=== PATIENT | female | born 1975 | race Caucasian/White ===

== ENCOUNTER → 2017-01-26 | Outpatient (CLI) | payer MEDICAID ==
--- NOTE | 2017-01-27 10:18 | MM ---
Reason for exam: screening (asymptomatic). Last mammogram was performed 1 year and 8 months ago. History: Patient has history of other cancer at age 37. Physical Findings: A clinical breast exam by your physician is recommended on an annual basis and results should be correlated with mammographic findings. MG 3D Screening Mammo W/Cad Bilateral CC and MLO view(s) were taken. Prior study comparison: May 23, 2015, bilateral MG screening mammo w CAD. The breast tissue is heterogeneously dense. This may lower the sensitivity of mammography. No significant changes when compared with prior studies. ASSESSMENT: Negative, BI-RAD 1 RECOMMENDATION: Routine screening mammogram of both breasts in 1 year.
== END | disposition home or self-care (01) ==
LOC: RADMAMWWP 07:42
PROVIDERS: ATTEND Obstetrics & Gynecology
DX: Z12.31 Encounter for screening mammogram for malignant neoplasm of breast (principal)
CPT/HCPCS: 77063; G0202

== ENCOUNTER → 2017-06-22 | Outpatient (CLI) | payer MEDICAID ==
--- NOTE | 2017-06-22 10:25 | US ---
EXAMINATION TYPE: US thyroid st tissue head/neck DATE OF EXAM: 06/22/2017 COMPARISON: US 04/09/2016 and 10/15/2015. CLINICAL HISTORY: C73 Post Thyroid Cancer Screening. GLAND SIZE: Right Lobe: surgically removed Left Lobe: surgically removed NODULES RIGHT: possible lymph node at mid thyroid bed = 0.7 x 0.5 x 0.6cm. This is stable previously measuri ng 0.7 x 0.5 cm and on the exam of 10/15/2015 measuring 0.8 x 0.5 mm. LEFT: no thyroid tissue is identified ISTHMUS: no thyroid tissue is identified IMPRESSION: 1. Prior thyroidectomy with no residual thyroid tissue visualized sonographically. 2. Stable single lymph node at the mid thyroidectomy bed on the right in comparison to the prior exam .
== END | disposition home or self-care (01) ==
LOC: RADUSWWP 08:56
PROVIDERS: ATTEND Internal Medicine Endocrinology, Diabetes & Metabolism
DX: C73 Malignant neoplasm of thyroid gland (principal); E89.0 Postprocedural hypothyroidism
CPT/HCPCS: 76536

== ENCOUNTER → 2017-06-24 | Outpatient (CLI) | payer MEDICAID | END | disposition home or self-care (01) | LOC: LABMAIN 06:50 | PROVIDERS: ATTEND Internal Medicine Endocrinology, Diabetes & Metabolism | DX: C73 Malignant neoplasm of thyroid gland (principal); E89.0 Postprocedural hypothyroidism | CPT/HCPCS: 36415; 84432; 84439; 84443; 86800 ==

== ENCOUNTER → 2018-04-27 | Outpatient (CLI) | payer MEDICAID | END | disposition home or self-care (01) | LOC: LABMAIN 06:56 | PROVIDERS: ATTEND Family Medicine | DX: E03.9 Hypothyroidism, unspecified (principal); R53.83 Other fatigue; Z53.9 Procedure and treatment not carried out, unspecified reason ==

== ENCOUNTER → 2019-02-21 | Outpatient (CLI) | payer MEDICAID ==
[2019-02-21 18:28] LABS: Thyroglobulin <0.20 ng/mL (1.60-59.90)
== END | disposition home or self-care (01) ==
LOC: LABMAIN 06:56
PROVIDERS: ATTEND Family Medicine
DX: C73 Malignant neoplasm of thyroid gland (principal)
CPT/HCPCS: 36415; 84432; 84439; 84443; 86800

== ENCOUNTER → 2019-03-18 | Outpatient (CLI) | payer MEDICAID ==
--- NOTE | 2019-03-21 10:56 | MM ---
Reason for exam: screening (asymptomatic). Last mammogram was performed 2 years and 2 months ago. History: Patient has history of other cancer at age 37. Physical Findings: A clinical breast exam by your physician is recommended on an annual basis and results should be correlated with mammographic findings. MG Screening Mammo w CAD Bilateral CC and MLO view(s) were taken. Prior study comparison: January 26, 2017, bilateral MG 3d screening mammo w/cad. May 23, 2015, bilateral MG screening mammo w CAD. The breast tissue is heterogeneously dense. This may lower the sensitivity of mammography. Finding: There is a 5 mm high density, round mass located 6-7 cm from the nipple in the 12 o'clock middle position of the left breast consistent with possible cyst. Asymmetric breast tissue in right upper outer quadrant 6-7cm from the nipple on MLO view. ASSESSMENT: Incomplete: need additional imaging evaluation, BI-RAD 0 RECOMMENDATION: Special view mammogram of both breasts. If lesion persists on supplemental views, image directed ultrasound is recommended. [facility] will attempt to contact patient to return for supplemental views and ultrasound if indicated.
== END ==
LOC: RADMAMWWP 11:14
PROVIDERS: ATTEND Obstetrics & Gynecology
DX: Z12.31 Encounter for screening mammogram for malignant neoplasm of breast (principal)
CPT/HCPCS: 77067

== ENCOUNTER → 2019-03-25 | Outpatient (CLI) | payer MEDICAID ==
--- NOTE | 2019-03-25 11:17 | MM ---
Reason for exam: additional evaluation requested from abnormal screening. Last mammogram was performed less than 1 month ago. History: Patient has history of other cancer at age 37. Physical Findings: Nurse did not find any significant physical abnormalities on exam. MG 3D Work Up W/Cad NATHALIE Bilateral spot compression CC and LM view(s) were taken. Spot compression MLO view(s) were taken of the right breast. Prior study comparison: March 18, 2019, bilateral MG screening mammo w CAD. January 26, 2017, bilateral MG 3d screening mammo w/cad. No significant new findings when compared with previous films. These results were verbally communicated with the patient and result sheet given to the patient on 03/25/19. ASSESSMENT: Benign, BI-RAD 2 RECOMMENDATION: Return to routine screening mammogram schedule for both breasts.
== END | disposition home or self-care (01) ==
LOC: RADMAMWWP 10:17
PROVIDERS: ATTEND Obstetrics & Gynecology
DX: R92.8 Other abnormal and inconclusive findings on diagnostic imaging of breast (principal)
CPT/HCPCS: 77062; 77066

== ENCOUNTER → 2019-05-02 | Outpatient (CLI) | payer MEDICAID ==
[2019-05-02 08:31] LABS: Basophils % (A) 0 %; Eosinophils # (A) 0.2 k/uL (0-0.7); Eosinophils % (A) 2 %; HGB 13.9 gm/dL (11.4-16.0); Lymphocytes # (A) 2.2 k/uL (1.0-4.8); Lymphocytes % (A) 25 %; MCH 28.3 pg (25.0-35.0); MCV 85.8 fL (80.0-100.0); Mean Platelet Volume 7.9; Monocytes # (A) 0.6 k/uL (0-1.0); Monocytes % (A) 7 %; Neutrophils # (A) 5.3 k/uL (1.3-7.7); Neutrophils % (A) 62 %; Platelet Count 239 k/uL (150-450); RBC 4.89 m/uL (3.80-5.40); RDW 13.5 % (11.5-15.5); WBC 8.6 k/uL (3.8-10.6)
[2019-05-02 16:50] LABS: ALT 18 U/L (8-44); AST 21 U/L (13-35); African American GFR (CKD) 103.2 (60.0-200.0); Albumin/Globulin Ratio 1.72 (1.60-3.17); Alkaline Phosphatase 74 U/L (41-126); BUN/Creat Ratio 13.75 Ratio (12.00-20.00); Calcium 9.4 mg/dL (8.7-10.3); Carbon Dioxide 25.1 mmol/L (21.6-31.8); Chloride 109 mmol/L (96-109); Globulin 2.5 g/dL (1.6-3.3); Glucose 99 mg/dL (70-110); Potassium 4.1 mmol/L (3.5-5.5); Sodium 139 mmol/L (135-145); Total Bilirubin 0.6 mg/dL (0.3-1.2); Total Protein 6.8 g/dL (6.2-8.2)
[2019-05-02 16:59] LABS: Folate, Serum 13.6 ng/mL
== END | disposition home or self-care (01) ==
LOC: LABMAIN 07:55
PROVIDERS: ATTEND Family Medicine
DX: R53.83 Other fatigue (principal); Z85.850 Personal history of malignant neoplasm of thyroid
CPT/HCPCS: 36415; 80053; 82306; 82607; 82746; 84439; 84443; 84481; 85025

== ENCOUNTER → 2019-05-06 | Outpatient (CLI) | payer MEDICAID ==
--- NOTE | 2019-05-06 10:16 | US ---
EXAMINATION TYPE: US thyroid st tissue head/neck DATE OF EXAM: 05/06/2019 COMPARISON: 06/22/2017 CLINICAL HISTORY: 43-year-old female Z85.850 personal hx of thyroid Ca. TECHNIQUE: Multiple sonographic images of the thyroidectomy bed are obtained. FINDINGS: Patient is status post thyroidectomy. There is either a soft tissue nodule versus lymph node at mid right thyroidectomy bed = 0.7 x 0.4 x 0 .4cm. The appearance on sagittal series with central echogenic area is more suggestive of a lymph nod e. Measured previously at 0.7 x 0.5 x 0.6cm Bilateral neck scanned, no other evidence of lymphadenopathy. IMPRESSION: 1. Status post thyroidectomy. 2. A solitary nodule in the right thyroidectomy bed measuring 7 x 4 mm is grossly unchanged from prio r exam where it measured 7 x 6 mm. The sagittal images suggest a small lymph node.
== END | disposition home or self-care (01) ==
LOC: RADUSWWP 08:15
PROVIDERS: ATTEND Family Medicine
DX: Z08 Encounter for follow-up examination after completed treatment for malignant neoplasm (principal); Z85.850 Personal history of malignant neoplasm of thyroid; E89.0 Postprocedural hypothyroidism; E04.1 Nontoxic single thyroid nodule
CPT/HCPCS: 76536

== ENCOUNTER → 2019-09-01 | Outpatient (CLI) | payer MEDICAID | END | disposition home or self-care (01) | LOC: LABMAIN 06:46 | PROVIDERS: ATTEND Internal Medicine | DX: E89.0 Postprocedural hypothyroidism (principal) | CPT/HCPCS: 36415; 84439; 84443 ==

== ENCOUNTER → 2020-01-12 | Outpatient (CLI) | payer MEDICAID ==
[2020-01-12 08:46] LABS: T4, Free (Free Thyroxine) 1.48 ng/dL (0.78-2.19)
== END | disposition home or self-care (01) ==
LOC: LABMAIN 07:18
PROVIDERS: ATTEND Family Medicine
DX: E89.0 Postprocedural hypothyroidism (principal)
CPT/HCPCS: 36415; 84439; 84443

== ENCOUNTER → 2020-07-11 | Outpatient (CLI) | payer MEDICAID | END | disposition home or self-care (01) | LOC: LABMAIN 06:56 | PROVIDERS: ATTEND Internal Medicine | DX: Z53.9 Procedure and treatment not carried out, unspecified reason (principal) ==

== ENCOUNTER → 2021-01-17 | Outpatient (CLI) | payer MEDICAID ==
--- NOTE | 2021-01-17 14:49 | US ---
EXAMINATION TYPE: US thyroid st tissue head/neck DATE OF EXAM: 01/17/2021 COMPARISON: NONE CLINICAL HISTORY: C73 Malignant neoplasm of thyroid gland. Thyroidectomy 8 years ago. NODULES RIGHT: Hypoechoic area seen mid .6 x .4 cm. seen on previous .7 x .4 cm LEFT: # of nodules measured on left: 0 Bilateral neck scanned, no evidence of lymphadenopathy. IMPRESSION: 1. Postthyroidectomy. 2. Stable 6 x 4 mm hypoechoic area within the right thyroid bed unchanged from the prior exam could r epresent a small lymph node.
== END ==
LOC: RADUSWWP 14:13
PROVIDERS: ATTEND Internal Medicine
DX: C73 Malignant neoplasm of thyroid gland (principal)
CPT/HCPCS: 76536

== ENCOUNTER → 2021-01-24 | Outpatient (CLI) | payer MEDICAID ==
[2021-01-24 13:05] LABS: T4, Free (Free Thyroxine) 1.4 ng/dL (0.80-1.80)
== END | disposition home or self-care (01) ==
LOC: LABMAIN 07:50
PROVIDERS: ATTEND Internal Medicine
DX: E89.0 Postprocedural hypothyroidism (principal); C73 Malignant neoplasm of thyroid gland
CPT/HCPCS: 36415; 84432; 84439; 84443; 86800

== ENCOUNTER → 2021-04-10 | Outpatient (CLI) | payer MEDICAID ==
[2021-04-10 17:06] LABS: Chol/HDL Ratio 3.73; LDL Cholesterol,Calculated 112.6 mg/dL (0.0-131.0); VLDL Calculation 18.4 mg/dL (5.00-40.00)
== END | disposition home or self-care (01) ==
LOC: LABMAIN 07:22
PROVIDERS: ATTEND Obstetrics & Gynecology
DX: Z13.220 Encounter for screening for lipoid disorders (principal)
CPT/HCPCS: 36415; 80061

== ENCOUNTER → 2021-04-11 | Outpatient (CLI) | payer MEDICAID ==
--- NOTE | 2021-04-15 07:52 | MM ---
Reason for exam: screening (asymptomatic). Last mammogram was performed 2 years and 1 month ago. History: Patient has history of other cancer at age 37. Physical Findings: A clinical breast exam by your physician is recommended on an annual basis and results should be correlated with mammographic findings. MG 3D Screening Mammo W/Cad Bilateral CC, MLO, and XCCL view(s) were taken. Prior study comparison: March 25, 2019, bilateral MG 3d work up w/cad NATHALIE. March 18, 2019, bilateral MG screening mammo w CAD. The breast tissue is heterogeneously dense. This may lower the sensitivity of mammography. ASSESSMENT: Benign, BI-RAD 2 RECOMMENDATION: Routine screening mammogram of both breasts in 1 year.
== END | disposition home or self-care (01) ==
LOC: RADMAMWWP 13:11
PROVIDERS: ATTEND Obstetrics & Gynecology
DX: Z12.31 Encounter for screening mammogram for malignant neoplasm of breast (principal)
CPT/HCPCS: 77063; 77067

== ENCOUNTER → 2022-06-27 | Outpatient (CLI) | payer MEDICAID ==
[2022-06-27 11:04] LABS: T4, Free (Free Thyroxine) 1.6 ng/dL (0.800-1.800)
== END | disposition home or self-care (01) ==
LOC: LABMAIN 07:40
PROVIDERS: ATTEND Internal Medicine
DX: C73 Malignant neoplasm of thyroid gland (principal); E89.0 Postprocedural hypothyroidism
CPT/HCPCS: 84432; 84439; 84443; 86800

== ENCOUNTER → 2022-07-08 | Outpatient (CLI) | payer MEDICAID ==
--- NOTE | 2022-07-09 07:36 | MM ---
Reason for Exam: Screening (asymptomatic). Last mammogram was performed 1 year(s) and 2 month(s) ago. Patient History: Menarche at age 11. First Full-Term at age 26. Other cancer, age 37. Last menstrual period: 06/29/2022 Risk Values: Janine 5 year model risk: 1.0%. NCI Lifetime model risk: 10.2%. Prior Study Comparison: 03/18/2019 Bilateral Screening Mammogram, [facility]. 03/25/2019 Bilateral Diagnostic Mammogram, [facility]. 04/11/2021 Bilateral Screening Mammogram, [facility]. Tissue Density: The breast tissue is heterogeneously dense. This may lower the sensitivity of mammography. Findings: Analyzed By CAD. There is no suspicious group of microcalcifications or new suspicious mass in either breast. Overall Assessment: Benign, BI-RAD 2 Management: Screening Mammogram of both breasts in 1 year. A clinical breast exam by your physician is recommended on an annual basis and results should be correlated with mammographic findings. Electronically signed and approved by: Ron Alexander M.D. [facility]
== END | disposition home or self-care (01) ==
LOC: RADMAMWWP 07:18
PROVIDERS: ATTEND Obstetrics & Gynecology
DX: Z12.31 Encounter for screening mammogram for malignant neoplasm of breast (principal); Z85.89 Personal history of malignant neoplasm of other organs and systems
CPT/HCPCS: 77063; 77067